=== PATIENT | male | born 1995 | race Caucasian/White ===

== ENCOUNTER 2020-07-02 03:24 | Emergency (ER) | payer SELFPAY ==
[~2020-07-02] VITALS: Ht 177.8 cm; Wt 72.6 kg
--- NOTE | 2020-07-02 09:18 | EKG ---
[facility] [address] [facility] [place] [address] Signed Sinus tachycardia Possible Left atrial enlargement RSR' or QR pattern in V1 suggests right ventricular conduction delay Borderline ECG No previous ECGs available Confirmed by CHIN KEITH MD ([id number]) on 07/02/2020 9:18:09 AM Electronically Signed By: CHIN KEITH MD 07/02/20917 PATIENT NAME: STEVE MÁRQUEZ Electrocardiogram DATE OF : [birth year] PHYSICIAN: CHIN KEITH MD REPORT #: [id number] REPORT IS CONFIDENTIAL AND NOT TO BE RELEASED WITHOUT AUTHORIZATION
== END 2020-07-02 05:00 | disposition home or self-care (01) ==
LOC: ED 03:24
DX: R00.0 Tachycardia, unspecified (principal); F41.9 Anxiety disorder, unspecified; F17.200 Nicotine dependence, unspecified, uncomplicated
CPT/HCPCS: 80053; 81001; 84443; 85025; 93005; 93010; 99285-25